=== PATIENT | female | born 1995 | race Caucasian/White ===

== ENCOUNTER 2017-07-27 07:53 | Inpatient (IN) | payer OTHER ==
[~2017-07-27] VITALS: Ht 172.7 cm; Wt 56.7 kg
[2017-07-28] MEDS ORDERED: ONDANSETRON 4 MG/2 ML VIAL IM PRN (17:00)
[2017-07-28] MEDS ORDERED: LORAZEPAM 2 MG/1 ML VIAL IM PRN (17:00)
[2017-07-28] MEDS ORDERED: DICYCLOMINE HCL 20 MG TABLET PO PRN (17:00)
[2017-07-28] MEDS ORDERED: BUPRENORPHINE HCL 2 MG TAB.SUBL SL PRN (17:00)
[2017-07-28] MEDS ORDERED: LORAZEPAM 1 MG TABLET PO PRN ×2 (17:00)
[2017-07-28] MEDS ORDERED: CLONIDINE HCL 0.1 MG TABLET PO PRN (17:00)
[2017-07-28] MEDS ORDERED: ACETAMINOPHEN 325 MG TABLET PO PRN (17:00)
[2017-07-28] MEDS ORDERED: MAG HYDROX/AL HYDROX/SIMETH 30 ML LIQUID UDC PO PRN (17:00)
[2017-07-28] MEDS ORDERED: METHOCARBAMOL 750 MG TABLET PO PRN (17:00)
[2017-07-28] MEDS ORDERED: MIRALAX 17 GM POWD.PACK PO PRN (17:00)
[2017-07-28] MEDS ORDERED: LOPERAMIDE HCL 2 MG CAPSULE PO PRN ×2 (17:00)
[2017-07-28] MEDS ORDERED: IBUPROFEN 600 MG TABLET PO PRN (17:00)
[2017-07-28] MEDS ORDERED: MAGNESIUM HYDROXIDE 30 ML LIQUID UDC PO PRN (17:00)
[2017-07-28] MEDS ORDERED: ONDANSETRON ODT 4 MG TAB.RAPDIS SL PRN (17:00)
[2017-07-28 17:36] LABS: *URINE HCG, QUAL NEGATIVE (NEGATIVE)
[2017-07-28 17:55] LABS: *AMPHETAMINE, URINE POSITIVE (NEGATIVE); *BARBITURATE, URINE NEGATIVE (NEGATIVE); *CANNABINOID, URINE POSITIVE (NEGATIVE); *COCCAINE, URINE NEGATIVE (NEGATIVE); *OPIATE, URINE POSITIVE (NEGATIVE); *PHENCYCLIDINE SCREEN,URINE NEGATIVE (NEGATIVE)
[2017-07-28 20:50] VITALS: BP 117/75
[2017-07-28] MEDS: GABAPENTIN 300 MG CAPSULE PO SCH (20:55)
[2017-07-28] MEDS ORDERED: LORAZEPAM 1 MG TABLET PO SCH (21:00)
[2017-07-28 23:22] LABS: BASOPHILS % (AUTO) 0.5 % (0.0-2.0); EOSINOPHILS # (AUTO) 0.3 K/uL (0.0-0.7); EOSINOPHILS % (AUTO) 4.3 % (0.0-7.0); HEMATOCRIT 34.2 % (31.2-41.9); HEMOGLOBIN 11.7 g/dL (10.9-14.3); LYMPHOCYTES # (AUTO) 3.5 K/uL (20.0-40.0); LYMPHOCYTES % (AUTO) 48.8 % (20.5-51.5); MEAN CORPUSCULAR HEMOGLOBIN 30.5 uug (24.7-32.8); MEAN CORPUSCULAR HGB CONC 34 g/dL (32.3-35.6); MEAN CORPUSCULAR VOLUME 88.9 fL (75.5-95.3); MONOCYTES # (AUTO) 0.6 K/uL (2.0-10.0); MONOCYTES % (AUTO) 8.5 % (0.0-11.0); NEUTROPHILS # (AUTO) 2.7 K/uL (1.8-8.9); NEUTROPHILS % (AUTO) 37.9 % (38.5-71.5); PLATELET COUNT (AUTO) 275 K/uL (179-408); RED BLOOD CELL COUNT(AUTO) 3.85 MIL/uL (3.63-4.92); WHITE BLOOD COUNT (AUTO) 7.2 K/uL (3.8-11.8)
[2017-07-28 23:38] LABS: ALANINE AMINOTRANSFERASE 16 U/L (14-59); ALKALINE PHOSPHATASE 83 U/L (50-136); ASPARTATE AMINOTRANSFERASE 18 U/L (15-37); BILIRUBIN,TOTAL 0.2 mg/dL (0.2-1.0); CARBON DIOXIDE 30 mmol/L (21-32); CHLORIDE 103 mmol/L (98-107); CREATININE 0.9 mg/dL (0.6-1.3); GLUCOSE 111 mg/dL (74-106); MAGNESIUM 1.8 mg/dL (1.8-2.4); POTASSIUM 3.3 mmol/L (3.5-5.1); TOTAL PROTEIN, SERUM 6.5 g/dL (6.4-8.2); UREA NITROGEN, BLOOD 6 mg/dL (7-18)
[2017-07-29 00:02] LABS: ETHANOL < 3 MG/DL (0-0)
[2017-07-29 00:48] VITALS: BP 122/67
[2017-07-29 04:15] VITALS: BP 103/55
[2017-07-29 09:00] VITALS: BP 113/64
[2017-07-29] MEDS ORDERED: TUBERCULIN,PURIF.PROT.DERIV. 5 TU/0.1 ML TEST ID ONE (09:00)
[2017-07-29] MEDS ORDERED: POTASSIUM CHLORIDE 20 MEQ TAB.PRT.SR PO ONE (09:00)
[2017-07-29] MEDS: BUPRENORPHINE HCL 2 MG TAB.SUBL SL SCH ×3 (09:58→22:40)
[2017-07-29] MEDS: GABAPENTIN 300 MG CAPSULE PO SCH ×2 (09:59→22:40)
[2017-07-29] MEDS: LORAZEPAM 1 MG TABLET PO SCH ×3 (09:59→22:39)
[2017-07-29 13:19] VITALS: BP 115/88
[2017-07-29 17:25] VITALS: BP 119/60
[2017-07-29 20:00] VITALS: BP 117/68
[2017-07-30] VITALS: BP 112/66
[2017-07-30 04:00] VITALS: BP 105/63
[2017-07-30 08:00] VITALS: BP 120/60
[2017-07-30 08:06] LABS: HEPATITIS B SURFACE AG Negative (Negative)
[2017-07-30] MEDS: LORAZEPAM 1 MG TABLET PO SCH ×3 (08:56→21:23)
[2017-07-30] MEDS: GABAPENTIN 300 MG CAPSULE PO SCH ×2 (08:56→21:23)
[2017-07-30] MEDS ORDERED: BUPRENORPHINE HCL 2 MG TAB.SUBL SL SCH (09:00)
[2017-07-30] MEDS ORDERED: HYDROXYZINE PAMOATE 25 MG CAPSULE PO PRN (09:00)
[2017-07-30 12:00] VITALS: BP 125/76
[2017-07-30] MEDS ORDERED: BISACODYL 5 MG TABLET.DR PO PRN (14:45)
[2017-07-30] MEDS ORDERED: BISACODYL 10 MG SUPP.RECT RC PRN (14:45)
[2017-07-30] MEDS: BUPRENORPHINE HCL 2 MG TAB.SUBL SL SCH ×2 (15:55→21:23)
[2017-07-30 16:00] VITALS: BP 123/70
[2017-07-30] MEDS ORDERED: KETOROLAC TROMETHAMINE 30 MG INJ IM PRN (19:30)
[2017-07-30 20:00] VITALS: BP 110/60
[2017-07-30] MEDS: BACLOFEN 10 MG TABLET PO SCH (21:22)
[2017-07-30] MEDS: DOCUSATE SODIUM 100 MG CAPSULE PO SCH (21:23)
[2017-07-31] VITALS: BP 112/59
[2017-07-31 04:00] VITALS: BP 119/61
[2017-07-31 08:00] VITALS: BP 129/81
[2017-07-31] MEDS: BACLOFEN 10 MG TABLET PO SCH ×3 (08:18→21:10)
[2017-07-31] MEDS: LORAZEPAM 1 MG TABLET PO SCH ×2 (08:19→21:10)
[2017-07-31] MEDS: BUPRENORPHINE HCL 2 MG TAB.SUBL SL SCH ×3 (08:19→21:11)
[2017-07-31] MEDS: GABAPENTIN 300 MG CAPSULE PO SCH ×3 (08:19→21:10)
[2017-07-31 12:34] VITALS: BP 130/65
[2017-07-31 16:00] VITALS: BP_SYST 115; BP_SYST 140; BP_DIAS 60; BP_DIAS 90
[2017-07-31 20:00] VITALS: BP 145/100
[2017-07-31] MEDS: DOCUSATE SODIUM 100 MG CAPSULE PO SCH (21:12)
[2017-07-31] MEDS: diphenhydrAMINE 50 MG CAPSULE PO PRN (21:15)
[2017-08-01 08:00] VITALS: BP 114/73
[2017-08-01] MEDS: BACLOFEN 10 MG TABLET PO SCH ×3 (08:23→22:20)
[2017-08-01] MEDS: GABAPENTIN 300 MG CAPSULE PO SCH ×3 (08:24→22:19)
[2017-08-01] MEDS ORDERED: LORAZEPAM 1 MG TABLET PO SCH (09:00)
[2017-08-01] MEDS ORDERED: BUPRENORPHINE HCL 2 MG TAB.SUBL SL SCH (09:00)
[2017-08-01 12:34] VITALS: BP 140/84
[2017-08-01] MEDS ORDERED: GABA-534 PO (15:54)
[2017-08-01] MEDS ORDERED: BACL10TA PO (15:54)
[2017-08-01] MEDS ORDERED: HYDR-3895 PO (15:54)
[2017-08-01 16:00] VITALS: BP 140/80
[2017-08-01 20:00] VITALS: BP 143/94
[2017-08-01] MEDS: DOCUSATE SODIUM 100 MG CAPSULE PO SCH (21:00)
[2017-08-01] MEDS: diphenhydrAMINE 50 MG CAPSULE PO PRN (22:20)
[2017-08-02 08:00] VITALS: BP 112/73
[2017-08-02] MEDS: GABAPENTIN 300 MG CAPSULE PO SCH (08:21)
[2017-08-02] MEDS: BACLOFEN 10 MG TABLET PO SCH (08:21)
== END 2017-08-02 09:25 | disposition other institution (70) | DRG 895 ==
LOC: SRC 07-28 14:31
PROVIDERS: ADMIT Internal Medicine; ATTEND Internal Medicine
PROC: HZ2ZZZZ Detoxification Services for Substance Abuse Treatment (ICD-10-PCS; principal; 2017-07-28)
PROC: HZ31ZZZ Individual Counseling for Substance Abuse Treatment, Behavioral (ICD-10-PCS; 2017-07-31)
DX: F11.23 Opioid dependence with withdrawal (principal); E87.6 Hypokalemia; F17.210 Nicotine dependence, cigarettes, uncomplicated; F13.230 Sedative, hypnotic or anxiolytic dependence with withdrawal, uncomplicated; F41.9 Anxiety disorder, unspecified; Z81.3 Family history of other psychoactive substance abuse and dependence; F15.10 Other stimulant abuse, uncomplicated; F90.9 Attention-deficit hyperactivity disorder, unspecified type; Z79.899 Other long term (current) drug therapy
CPT/HCPCS: 36415; 80307; 80324; 80346; 80349; 80361; 83735; 84703; 85025; 86580; 86592; 86705; 86803; 87340; 87806; A4663; G0480; Q0163